=== PATIENT | female | born 1975 | race Two or more races ===

== ENCOUNTER 2023-05-11 11:45 | Inpatient (IN) | payer OTHER ==
[~2023-05-11] VITALS: Ht 152.4 cm; Wt 73.5 kg
[2023-05-11] MEDS ORDERED: AVAPRO300 MG PO (14:24)
[2023-05-14 15:45] LABS: HEMOGLOBIN 11.3 g/dL (12.0-15.00); MEAN CELL VOLUME 92.1 fL (80.00-100.00); MEAN CORPUSCULAR HEMOGLOBIN 30.5 pg (27.00-32.0); MEAN CORPUSCULAR HGB CONC 33.1 g/dl (32.0-36.0); PLATELET COUNT 288 K/uL (150-450); RED CELL DISTRIBUTION WIDTH 13.3 % (11.5-14.5)
[2023-05-14 15:58] LABS: ALBUMIN 3.1 gm/dL (3.4-5.0); BILIRUBIN TOTAL 0.46 mg/dL (0.3-1.2); CALCIUM 8.3 mg/dL (8.5-10.1); CREATININE SERUM 0.84 mg/dL (0.55-1.02); GFR 72.36; GLOBULINA 2.4 G/DL (2.4-3.5); POTASSIUM 3.75 mEq/L (3.5-5.1); TOTAL PROTEIN 5.5 gm/dL (6.4-8.2)
[2023-05-15 06:55] LABS: HEMATOCRIT 33.4 % (36.0-45.00); HEMOGLOBIN 11.4 g/dL (12.0-15.00); MEAN CELL VOLUME 93.6 fL (80.00-100.00); MEAN CORPUSCULAR HEMOGLOBIN 31.9 pg (27.00-32.0); MEAN CORPUSCULAR HGB CONC 34.1 g/dl (32.0-36.0); PLATELET COUNT 301 K/uL (150-450); RED BLOOD COUNT 3.57 M/uL (4.00-6.00)
[2023-05-15 07:16] LABS: CALCIUM 8.4 mg/dL (8.5-10.1); CREATININE SERUM 0.6 mg/dL (0.55-1.02); GFR 106.7; MAGNESIUM 1.7 mg/dL (1.8-2.4); PHOSPHOROUS 3.1 mg/dL (2.5-4.9); POTASSIUM 3.96 mEq/L (3.5-5.1)
[2023-05-15] MEDS ORDERED: FLONASE16 GM (10:18)
[2023-05-16 10:21] LABS: HEMATOCRIT 31.2 % (36.0-45.00); HEMOGLOBIN 10.4 g/dL (12.0-15.00); MEAN CELL VOLUME 92.3 fL (80.00-100.00); MEAN CORPUSCULAR HEMOGLOBIN 30.9 pg (27.00-32.0); MEAN CORPUSCULAR HGB CONC 33.4 g/dl (32.0-36.0); PLATELET COUNT 259 K/uL (150-450); RED BLOOD COUNT 3.38 M/uL (4.00-6.00); RED CELL DISTRIBUTION WIDTH 13.3 % (11.5-14.5)
[2023-05-16 11:05] LABS: CALCIUM 8.9 mg/dL (8.5-10.1); CREATININE SERUM 0.55 mg/dL (0.55-1.02); GFR 117.97; MAGNESIUM 1.9 mg/dL (1.8-2.4); PHOSPHOROUS 2.1 mg/dL (2.5-4.9); POTASSIUM 4.16 mEq/L (3.5-5.1)
[2023-05-16 18:23] LABS: HEMATOCRIT 32.5 % (36.0-45.00); HEMOGLOBIN 10.9 g/dL (12.0-15.00); MEAN CORPUSCULAR HEMOGLOBIN 31.5 pg (27.00-32.0); MEAN CORPUSCULAR HGB CONC 33.5 g/dl (32.0-36.0); PLATELET COUNT 251 K/uL (150-450); RED BLOOD COUNT 3.46 M/uL (4.00-6.00)
[2023-05-16 19:01] LABS: BILIRUBIN TOTAL 0.39 mg/dL (0.3-1.2); CALCIUM 9.3 mg/dL (8.5-10.1); CREATININE SERUM 0.63 mg/dL (0.55-1.02); GFR 100.86; GLOBULINA 3.1 G/DL (2.4-3.5); POTASSIUM 4.16 mEq/L (3.5-5.1); TOTAL PROTEIN 6.1 gm/dL (6.4-8.2)
[2023-05-17] MEDS ORDERED: CEPHALEXIN500 MG PO (05:45)
[2023-05-17] MEDS ORDERED: TYLENOL ARTHRI650 MG PO (05:45)
[2023-05-17] MEDS ORDERED: NEURONTIN600 M1 PO (05:45)
[2023-05-17] MEDS ORDERED: PEPCID AC20 MG PO (05:45)
[2023-05-17] MEDS ORDERED: MIRALAX17 GM PO (05:45)
[2023-05-17] MEDS ORDERED: KETO10TA2 PO (05:45)
[2023-05-17] MEDS ORDERED: TRAMADOL HCL50 MG PO (05:45)
[2023-05-17 07:48] LABS: HEMATOCRIT 28.8 % (36.0-45.00); MEAN CELL VOLUME 92.7 fL (80.00-100.00); MEAN CORPUSCULAR HEMOGLOBIN 32.1 pg (27.00-32.0); MEAN CORPUSCULAR HGB CONC 34.6 g/dl (32.0-36.0); PLATELET COUNT 246 K/uL (150-450); RED BLOOD COUNT 3.11 M/uL (4.00-6.00)
== END 2023-05-17 13:51 | disposition home or self-care (01) | DRG 743 ==
LOC: O/R 05-14 07:03 → SURG 05-14 10:15 → OB/GYN 05-14 15:53
PROVIDERS: Obstetrics & Gynecology; Surgery; ADMIT Obstetrics & Gynecology Gynecologic Oncology; ATTEND Obstetrics & Gynecology Gynecologic Oncology
PROC: 0UT20ZZ Resection of Bilateral Ovaries, Open Approach (ICD-10-PCS; 2023-05-14)
PROC: 0TN70ZZ Release Left Ureter, Open Approach (ICD-10-PCS; 2023-05-14)
PROC: 0TN60ZZ Release Right Ureter, Open Approach (ICD-10-PCS; 2023-05-14)
PROC: 0DNW0ZZ Release Peritoneum, Open Approach (ICD-10-PCS; 2023-05-14)
PROC: 0WQF0ZZ Repair Abdominal Wall, Open Approach (ICD-10-PCS; 2023-05-14)
PROC: 0UT90ZZ Resection of Uterus, Open Approach (ICD-10-PCS; principal; 2023-05-14 10:15)
PROC: 0UT70ZZ Resection of Bilateral Fallopian Tubes, Open Approach (ICD-10-PCS; 2023-05-14 10:15)
DX: D25.1 Intramural leiomyoma of uterus (principal); N72 Inflammatory disease of cervix uteri; N83.01 Follicular cyst of right ovary; N83.02 Follicular cyst of left ovary; Z20.822 Contact with and (suspected) exposure to COVID-19; K43.2 Incisional hernia without obstruction or gangrene
CPT/HCPCS: 71275

== ENCOUNTER → 2025-01-11 09:04 | Outpatient (CLI) | payer OTHER ==
[~2025-01-11 09:04] MED LIST: AVAPRO300 MG PO; CEPHALEXIN500 MG PO; FLONASE16 GM; KETO10TA2 PO; MIRALAX17 GM PO; NEURONTIN600 M1 PO; PEPCID AC20 MG PO; TRAMADOL HCL50 MG PO; TYLENOL ARTHRI650 MG PO
[2025-01-11 10:00] LABS: BASO % 0.4 % (0.1-1.2); EOS # 0.10 (0.04-0.54); EOS % 1.2 % (0.7-7.0); LYMPH # 2.77 (1.18-3.74); LYMPH % 32.5 % (19.3-53.1); MEAN PLATELET VOLUME 9.80 fl (9.4-12.4); MONO # 0.41 (0.24-0.82); MONO % 4.8 % (4.7-12.5); NEUT # 5.19 (1.56-6.13); NEUT % 60.9 % (34.0-71.1); RED CELL DISTRIBUTION WIDTH 12.0 % (11.6-14.4)
[2025-01-11 10:07] LABS: URINE APPEARANCE Clear; URINE BILIRRUBIN Negative (NEGATIVE); URINE BLOOD Negative; URINE COLOR Yellow; URINE GLUCOSE Negative (NEGATIVE); URINE KETONE Negative (NEGATIVE); URINE LEUKOCYTE Negative; URINE NITRATE Negative; URINE PROTEIN Negative (NEGATIVE); URINE UROBILINOGEN 0.2 E.U./dl
[2025-01-11 10:13] LABS: URINE BACTERIA 158.4 uL (0.0-1933); URINE EPITHELIAL CELLS 3.3 uL (0.0-38.8); URINE RBC 2.4 uL (0.0-20.8); URINE WBC 2.6 uL (0.0-23.2)
[2025-01-11 10:20] LABS: URINE CAST 0.00 uL (0.0-1.40)
[2025-01-11 11:01] LABS: ALT/SGPT 26.0 U/L (12-78); AST/SGOT 15.0 U/L (15-37); BILIRUBIN TOTAL 0.6 mg/dL (0.3-1.2); BUN CREA RATIO 14.0 (7.0-25.0); CHOL HDL RATIO 3.2 (0-5.0); CREATININE SERUM 0.63 mg/dL (0.55-1.02); GFR 100.44; GLOBULINA 3.3 G/DL (2.4-3.5); GLUCOSE FASTING 92.0 mg/dL (65-100); HDL 50.0 mg/dl (40-60); LDL 88.0 mg/dl (0-130); OSMOLALITY SERUM 283.0 MOSM/KG (275-295); VLDL 24.0 (0-39)
== END | disposition home or self-care (01) ==
LOC: LAB 09:04
DX: D50.0 Iron deficiency anemia secondary to blood loss (chronic) (principal); E11.9 Type 2 diabetes mellitus without complications; E78.2 Mixed hyperlipidemia; N39.0 Urinary tract infection, site not specified; R80.9 Proteinuria, unspecified